=== PATIENT | male | born 1980 | race Caucasian/White ===

== ENCOUNTER 2022-07-19 20:53 | Emergency (ER) | payer OTHER, SELFPAY ==
[2022-07-19 21:03] VITALS: BP 148/90; PULSE 89; RESP 22; TEMP 36.1; O2SAT 98; BMI 23.7
--- NOTE | 2022-07-19 21:10 | CRLHL7_ITS ---
For Patients: As a result of the Century Cures Act, medical imaging exams and procedure reports are released immediately into your electronic medical record. You may view this report before your referring provider. If you have questions, please contact your health care provider. INDICATION: Injury and pain. TECHNIQUE: Left ankle 3 views. COMPARISON: None. FINDINGS: Osseous fragments adjacent to the distal fibular tip and the medial malleolar tip, representing avulsion fractures. Talar dome is intact. Ankle mortise is congruent. Moderate soft tissue swelling. IMPRESSION: Avulsion fractures of the distal fibula and medial malleolus. Dictated by Ted Bourgeois MD @ 07/19/2022 10:11:37 PM (Electronically Signed)
--- NOTE | 2022-07-19 21:30 | ED.GENADULT ---
HPI - General Adult General Chief complaint: Extremity Pain/Injury, Lower Stated complaint: swollen left ankle Time Seen by Provider: 07/19/22 20:55 Source: patient Limitations: no limitations History of Present Illness HPI narrative: 42-year-old male coming in today with an ankle injury. Sliding for space during softball when his ankle rolled. Complaining of bilateral ankle pain that is quite significant. Denies any other injury. Related Data Home Medications Medication Instructions Recorded Confirmed No Known Home Medications 07/19/22 07/19/22 Allergies Allergy/AdvReac Type Severity Reaction Status Date / Time No Known Drug Allergies Allergy Verified 07/19/22 21:03 Review of Systems Status of ROS: Reports: 6 or more systems reviewed and unremarkable except as noted in History and below Exam Narrative: Exam Narrative: Well-nourished well-developed patient in no acute distress. Alert and oriented. Answers questions appropriately. Mood and affect are appropriate. Thoughts are goal oriented and rational. No tangential or magical thinking noted. Patient speaks in full sentences without needing to catch his breath. HEENT: Normocephalic atraumatic. Pupils are equally round reactive to light. Extraocular muscles are intact. Conjunctivae are moist without any icterus noted. Moist mucous membranes. Extremities: Left ankle is markedly swollen. He has tenderness to palpation over the medial and lateral malleoli. Normal DP and PT pulses. No tenderness of the lower leg. Skin: Well perfused without any obvious rashes. Const: Vital Signs, click to edit/add: Vital Signs - 24 hr 07/19/22 21:03 Temperature 96.9 F L Pulse Rate [Pulse Oximeter] 89 Respiratory Rate 22 Blood Pressure [Ri ght Upper Arm] 148/90 H Pulse Oximetry 98 Oxygen Delivery Me thod Room Air Course Course Hospital Course: X-rays were done, read by me, shows avulsion fractures of both the medial and lateral malleoli. Consultation was done with the Orthopedic Department. Patient will be placed in a cam boot and follow up with Orthopedics this week. Patient will be nonweightbearing. Vital Signs Vital signs: Initial Vital Signs Temperature 96.9 F L 07/19/22 21:03 Temperature Source Temporal Artery Scan 07/19/22 21:03 Pulse Rate 89 07/19/22 21:03 Respiratory Rate 22 07/19/22 21:03 Blood Pressure 148/90 H 07/19/22 21:03 Blood Pressure Mean 109 H 07/19/22 21:03 Pulse Oximetry 98 07/19/22 21:03 Oxygen Delivery Method Room Air 07/19/22 21:03 Vital Signs Temperature 96.9 F L 07/19/22 21:03 Pulse Rate 89 07/19/22 21:03 Respiratory Rate 22 07/19/22 21:03 Blood Pressure 148/90 H 07/19/22 21:03 Pulse Oximetry 98 07/19/22 21:03 Oxygen Delivery Method Room Air 07/19/22 21:03 Temperature 96.9 F L 07/19/22 21:03 Pulse Rate 89 07/19/22 21:03 Respiratory Rate 22 07/19/22 21:03 Blood Pressure 148/90 H 07/19/22 21:03 Pulse Oximetry 98 07/19/22 21:03 Oxygen Delivery Method Room Air 07/19/22 21:03 Medical Decision Making MDM Narrative Medical decision making narrative: 42-year-old male with a by malleolar fracture. Plan per above Imaging Data Ankle xray: Attestation: I have reviewed the pertinent imaging results. Radiologist's impression: Left ankle 3 views. COMPARISON: None. FINDINGS: Osseous fragments adjacent to the distal fibular tip and the medial malleolar tip, representing avulsion fractures. Talar dome is intact. Ankle mortise is congruent. Moderate soft tissue swelling. IMPRESSION: Avulsion fractures of the distal fibula and medial malleolus. Discharge Plan Discharge Clinical Impression: Bimalleolar ankle fracture Patient Disposition: Home, Self-Care Condition: Stable Additional Instructions: Wear boot at all times unless you are icing the ankle in the next 24 hours. You are to be nonweightbearing, meaning, you cannot walk on that leg. You need to follow-up with orthopedic surgery this coming week to discuss definitive management which will likely include surgery. Information will be provided to you on how to make that appointment. Okay to take Tylenol 1000 mg 3 times a day as needed/as directed. I also did send some narcotic pain medication home with you today in the event that is necessary. There is Tylenol in this medication also so make sure that you are not taking more than 3000 mg per day of acetaminophen/Tylenol. Prescription sent to [facility]. Prescriptions: No Action No Known Home Medications Stand Alone Forms: [facility] Info Instructions
[2022-07-19] MEDS: HYDROCODONE-ACETAMIN 5-325 MG 1 TAB PO (21:35)
== END 2022-07-19 23:35 | disposition home or self-care (01) ==
PROVIDERS: Emergency Provider Family Medicine
DX: S82.845A Nondisplaced bimalleolar fracture of left lower leg, initial encounter for closed fracture (principal); Y33.XXXA Other specified events, undetermined intent, initial encounter; Y93.64 Activity, baseball
CPT/HCPCS: 73610; 99283; 99284; A9270